=== PATIENT | male | born 1945 | race Caucasian/White ===

== ENCOUNTER → 2020-10-11 03:21 | Outpatient (CLI) | payer OTHER, SELFPAY ==
[2020-10-11 18:11] LABS: SARS-CoV-2 RNA PCR Negative
== END ==
PROVIDERS: PCP Internal Medicine; Visit Provider Specialist
DX: Z01.812 Encounter for preprocedural laboratory examination (principal); Z20.822 Contact with and (suspected) exposure to COVID-19
CPT/HCPCS: C9803; U0003; U0005

== ENCOUNTER 2020-10-14 01:32 | Day surgery (SDC) | payer OTHER, SELFPAY ==
[2020-10-14] VITALS (12 sets, daily range): BP systolic 101–157; BP diastolic 61–84; PULSE 35–102; RESP 12–16; TEMP 36.1–36.6; O2SAT 97–100; BMI 27.4
--- NOTE | 2020-10-14 07:10 | SUR.PREOP ---
ARRIVES AMBULATORY TO [facility] FOR SCHEDULED LHC W/ DR. CAVAZOS. DENIES CP OR SOB THIS AM. STEADY GAIT. A&OX4. ORIENTED TO ROOM, PLAN OF CARE, PROCEDURE. QUESTIONS ANSWERED. IV STARTED, LABS SENT, VS OBTAINED, SKIN PREP COMPLETED, CONSENT SIGNED, PULSES MARKED. WILL CONTINUE TO MONITOR.
[2020-10-14 07:30] LABS: Basophils Percent Auto 0.3 % (0.2-1.2); Eosinophils Absolute Auto 0.2 K/mm3 (0-0.3); Eosinophils Percent Auto 2.3 % (0-4.4); Hematocrit 47.9 % (42.0-52.0); Hemoglobin 15.9 g/dL (14.0-18.0); Immature Granulocyte Absolute 0.02 K/mm3 (0.00-0.031); Immature Granulocyte Percent A 0.2 % (0-0.5); Lymphocytes Absolute Auto 3.11 K/mm3 (0.9-3.2); Lymphocytes Percent Auto 34.4 % (18.3-44.2); Mean Corpuscular HGB Conc 33.2 g/dl (32-36); Mean Corpuscular Hemoglobin 27.1 pg (26-34); Mean Corpuscular Volume 81.6 fl (80-100); Mean Platelet Volume 9.9 fl (7.4-10.4); Monocytes Absolute Auto 1.1 K/mm3 (0.1-0.6); Monocytes Percent Auto 12.5 % (2.6-8.5); Neutrophils Absolute Auto 4.5 K/mm3 (1.3-6.7); Neutrophils Percent Auto 50.3 % (45.5-73.1); Platelet Count Result 246 k/mm3 (150-375); Red Blood Count 5.87 M/mm3 (4.6-6.20); Red Cell Distribution Width 14.2 % (11.5-14.5)
[2020-10-14 07:41] LABS: Anion Gap 10 mmol/L (8-16); Blood Urea Nitrogen 15 mg/dL (9-20); Calcium 9.7 mg/dL (8.4-10.2); Carbon Dioxide 26 mmol/L (22-30); Chloride 108 mmol/L (98-107); Estimated Glomerular Filt Rate > 60; Glucose 120 mg/dL (75-110); Potassium 3.5 mmol/L (3.4-5.0); Sodium 144 mmol/L (137-145)
[2020-10-14 07:46] LABS: Prothrombin Time 13.3 Seconds (11.1-14.7)
--- NOTE | 2020-10-14 08:05 | WPDMODSED ---
Moderate Sedation Note-Pt Data Patient Data Diagnosis: Coronary artery disease with previous surgical revascularization Exertional dyspnea Obstructive sleep apnea on CPAP Mildly abnormal nuclear stress test Present Complaint: This is a 75-year-old patient with coronary disease who underwent bypass grafting in 2005. 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 He is not experiencing anginal-type chest pain Procedure to be performed/Plan: Coronary angiography Left ventriculography Internal mammary graft angiography Vein graft angiography Allergies Allergy/AdvReac Type Severity Reaction Status Date / Time No Known Allergies Allergy Verified 10/14/20 07:50 Home Medications Medication Instructions Recorded Confirmed Type cholecalciferol (vitamin D3) 50 2,000 unit PO DAILY 08/15/19 10/14/20 History mcg (2,000 unit) tablet rivaroxaban 10 mg tablet 20 mg PO DAILY 08/15/19 10/14/20 History hydrochlorothiazide 25 mg tablet 25 mg PO 3XW #36 tablet 10/03/19 10/14/20 Rx amlodipine 5 mg-benazepril 10 mg 1 cap PO BID #180 cap 01/10/20 10/14/20 Rx capsule atorvastatin 40 mg tablet 40 mg PO DAILY #90 tablet 04/04/20 10/14/20 Rx allopurinol 300 mg tablet 300 mg PO DAILY #90 tablet 06/07/20 10/14/20 Rx Current Medications: Active Medications Sodium Chloride (Normal Saline Iv) 500 mls @ 100 mls/hr IV CONT .Q5H WALLY Sedation/Anesthesia: No previous sedation/anesthesia problems (including family history). [facility] Past Medical History Medical History (Updated 08/15/19 @ 13:06 by Benito Kang MD) Chronic fatigue Surgical History Surgical History (Updated 08/15/19 @ 11:27 by Benito Kang MD) Other specified postprocedural states Status post transurethral resection of prostate Family History Family History Father Malignant neoplasm of prostate Sibling Family history of pancreatic disease Mother Family history of Alzheimer's disease Other Family history of cardiovascular disease Social History Social History Smoking status: Never smoker Second hand tobacco smoke exposure: No Alcohol intake: current Mod Sed Physical Exam Physical Exam Pre Procedural Exam: Normal: Appearance, Neck, Throat, Airway, Lungs, Heart Size, Heart Rate, Heart Rhythm, Neuro Exam and Extremities Hours since solid foods: 12 Hours since liquid intake: 12 Internal Medicine - PN: Obj Da Vital Signs Vital Signs: Vital Signs - 24 hr 10/14/20 07:25 Temperature 36.6 C Pulse Rate 102 H Respiratory Rate 16 Blood Pressure 157/83 H Pulse Oximetry 100 Meds/Results Medications: Active Medications Generic Name Dose Route Start Last Admin Trade Name Hawa PRN Reason Stop Dose Admin Sodium Chloride 500 mls @ 100 mls/hr 10/14/20 07:10 Normal Saline Iv IV CONT .Q5H WALLY Labs CBC & Chem 7: 10/14/20 07:22 10/14/20 07:22 Labs: Laboratory Results - last 24 hr 10/14/20 10/14/20 10/14/20 07:22 07:22 07:22 WBC 9.0 RBC 5.87 Hgb 15.9 Hct 47.9 MCV 81.6 MCH 27.1 MCHC 33.2 RDW 14.2 Plt Count 246 MPV 9.9 Immature Gran % (Auto) 0.2 Neut % (Auto) 50.3 Lymph % (Auto) 34.4 Gates % (Auto) 12.5 H Eos % (Auto) 2.3 Baso % (Auto) 0.3 Lymph # (Auto) 3.11 Gates # (Auto) 1.1 H Eos # (Auto) 0.2 Baso # (Auto) 0.0 Abs Immat Gran (auto) 0.02 Absolute Neuts (auto) 4.5 Absolute Nucleated RBC 0.0 Nucleated RBC % 0.0 PT 13.3 INR 1.0 Sodium 144 Potassium 3.5 Chloride 108 H Carbon Dioxide 26 Anion Gap 10 BUN 15 Creatinine 0.80 Estim Creat Clear Calc Not Reportable Estimated GFR > 60 Glucose 120 H Calcium 9.7 ASA Class
--- NOTE | 2020-10-14 08:09 | SUR.PREOP ---
DR. CAVAZOS TO BEDSIDE TO SEE PT.
--- NOTE | 2020-10-14 09:09 | WPDCARDPROC ---
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 His employment with [employer] requires nuclear stress testing which was done recently as an outpatient which demonstrated an apical lateral perfusion abnormality. Because of this follow-up angiography has been recommended. In 2005 he received a VELIZ graft to the LAD and a vein graft to the PDA. Previous to this he had undergone attempts at percutaneous stenting of the LAD. Procedure Procedure performed:: Left heart catheterization with left ventriculography, coronary angiography, vein graft angiography and internal mammary graft angiography. DC countershock of ventricular fibrillation Sedation/Medication given:: fentanyl 50 mg Versed 2 mg case start time 8:35 a.m. case end time 9:05 a.m. sedation provided by Daisy Gomez RN, trained observer Access site:: right femoral artery Estimated blood loss:: 20-30 cc Procedure note:: patient was brought to the cardiac catheterization lab in the postabsorptive state the right femoral triangle was prepared and draped in usual fashion. Anesthesia was provided with 1% lidocaine infiltrated locally. Using the modified Seldinger technique the common femoral artery was punctured and 5 Lithuanian vascular sheath was placed. After this I used a 5 Lithuanian angled pigtail catheter to document left-sided hemodynamics and to injected LV g in the our AO projection. After this a 5 Lithuanian FL4 catheter was used to engage inject the left coronary artery. Five Lithuanian JR4 catheter was used to engage inject the [place] right coronary artery as well as the saphenous vein graft to the PDA. After this 2nd injection of the saphenous vein graft the patient developed ventricular fibrillation which was terminated with 1 countershock at 200 joules restoring sinus rhythm. Following this I used the 5 Lithuanian CHEN catheter to engage inject the left mammary to the LAD. The procedure was then terminated angiogram was done of the femoral artery through the sheath after which an Angio-Seal device was deployed the puncture site with a good hemostatic result. Procedure was well tolerated the complication of ventricular fibrillation as a result of angiography of the saphenous vein graft to the PDA was as described above. Findings:: Hemodynamics: Central aortic pressure 112/55 left ventricle 110/0 end-diastolic 5. Left ventriculogram: The LV is normal in size all segments contract nicely in all segments the global ejection fraction is visually estimated at 65%. The left main coronary artery is nicely patent the left anterior descending is medium in caliber gives rise to a proximal septal branch and a small proximal diagonal after which the LAD itself is 100% occluded appears to be a chronic total occlusion in the region of previous stent material the circumflex is a large caliber artery giving rise to the marginal branches and a moderate-sized posterior branch. The circumflex system is free of significant lesions. Right coronary artery is small to medium in caliber and appears to have been codominant. The right coronary artery is 100% occluded in the 2nd portion after the largest acute marginal RV branch is seen the RV branch is free of disease. Saphenous vein graft to the PDA is a medium size caliber segment of saphenous vein it is free of degenerative changes it fills the posterior descending artery nicely is anastomosis is nicely patent. The left internal mammary artery is moderate caliber and is anastomosed to the mid to distal LAD distal to the stent material. It is injected non selectively it is nicely patent and free of disease a provides ALLYSSA 3 flow into the
--- NOTE | 2020-10-14 09:15 | SUR.PHASEII ---
BEGIN PHASE II RECOVERY. RETURNS TO [facility] S/P [facility] W/ DR. CAVAZOS. AWAKE AND ALERT X 4. DENIES CP OR SOB. ANGIOSEAL CLOSURE TO R. GROIN PUNCTURE SITE. GUAZE AND TEGADERM DRESSING C/D/I TO SITE. AREA SOFT, NONTENDER; NO BLEEDING OR HEMATOMA NOTED. R. PEDAL AND POST TIB PULSES PALP EASILY. MONITOR AFIB. BP STABLE. REVIEWED BEDREST ACTIVITY RESTRICTIONS W/ PT. BEDREST X 2 HOURS. WILL CONTINUE TO MONITOR.
--- NOTE | 2020-10-14 10:20 | SUR.PHASEII ---
HOB UP 30 DEGREES FOR MEAL. NO NEW CHANGES IN R. GROIN SITE. NOTED APNEA WHEN SLEEPING AND HR DIP INTO 30'S AT TIMES. MONITOR IS AFIB. OTHERWISE BP STABLE. WILL CONTINUE TO MONITOR.
--- NOTE | 2020-10-14 10:54 | SUR.PHASEII ---
NOTIFIED DR. 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 NO NEW ORDERS RECEIVED.
--- NOTE | 2020-10-14 11:30 | SUR.PHASEII ---
BEDREST X 2 HOURS COMPLETE. UP TO BATHROOM TO VOID, THEN RETURNED TO CHAIR. TOLERATED WELL. VOIDED WITHOUT DIFFICULTY. R. GROIN SITE REMAINS WITHOUT CHANGE. WILL CONTINUE TO MONITOR.
--- NOTE | 2020-10-14 12:50 | SUR.PHASEII ---
CONDITION UPDATE CALLED TO DR. CAVAZOS. NO CHANGE IN CONDITION NOTED. PT. HAS QUESTIONS FOR DR. CAVAZOS. AWAIT ARRIVAL OF DR. CAVAZOS.
--- NOTE | 2020-10-14 14:55 | SUR.PHASEII ---
DR. CAVAZOS HERE TO SEE PT. AGAIN UPDATED ON SLOW AFIB BEAT DOWN TO 30'S AT TIMES AND FREQUENT PVC'S. OTHERWISE, PT. WITHOUT C/O AND VSS. R. GROIN SITE REMAINS SOFT, NONTENDER. NO BLEEDING OR HEMATOMA NOTED. DRESSING C/D/I. ANGIOSEAL CLOSURE DEVICE IN USE. DR. CAVAZOS TO BEDSIDE TO TALK WITH PT.
--- NOTE | 2020-10-14 15:50 | SUR.PHASEII ---
REVIEWED DISCHARGE INSTRUCTIONS AND FOLLOW UP CARE W/ PT. PT. AWARE TO RESUME TAKING XARELTO ON 10/18/20. QUESTIONS ANSWERED. VOICED UNDERSTANDING OF ALL. COPY OF DISCHARGE INSTRUCTIONS GIVEN.
--- NOTE | 2020-10-14 15:52 | SUR.PHASEII ---
DISCHARGED HOME, OUT VIA WC W/ ALL PERSONAL BELONGINGS AND DISCHARGE PACKET TO DAUGHTER'S WAITING CAR. VOICES NO C/O. NO DISTRESS NOTED.
== END 2020-10-14 15:52 | disposition home or self-care (01) ==
PROVIDERS: PCP Internal Medicine; Visit Provider Specialist
PROC: 4A023N7 Measurement of Cardiac Sampling and Pressure, Left Heart, Percutaneous Approach (ICD-10-PCS; CPT 93459; principal; 2020-10-14 08:30)
DX: I25.10 Atherosclerotic heart disease of native coronary artery without angina pectoris (principal); I49.01 Ventricular fibrillation; R94.39 Abnormal result of other cardiovascular function study; G47.33 Obstructive sleep apnea (adult) (pediatric); Z95.1 Presence of aortocoronary bypass graft; Z95.5 Presence of coronary angioplasty implant and graft; Z79.01 Long term (current) use of 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s
CPT/HCPCS: 36415; 80048; 85025; 85610; 93459; C1760; C1769; C1887; C1894; C9803; G0269; J1644; J2250; J3010; J7040; U0003; U0005

== ENCOUNTER → 2021-07-09 10:32 | Outpatient (CLI) | payer OTHER, SELFPAY ==
--- NOTE | ~2021-07-09 | XR_ITS ---
EXAMINATION: XR shoulder RT min 2V INDICATION: Right shoulder pain TECHNIQUE: Four views of the right shoulder are submitted. COMPARISON: None FINDINGS: Normal alignment. No fracture. There is severe glenohumeral joint osteoarthritis and modera te acromioclavicular joint osteoarthritis. Severe cervical spondylosis is noted. There are changes of cardiac surgery. Soft tissues are unremarkable. IMPRESSION: 1. Polyarticular osteoarthritis. Reviewed, dictated and finalized at location B.
== END ==
PROVIDERS: PCP Internal Medicine; Visit Provider Internal Medicine
DX: M25.511 Pain in right shoulder (principal); M19.011 Primary osteoarthritis, right shoulder
CPT/HCPCS: 73030

== ENCOUNTER 2023-02-15 10:50 | Outpatient (CLI) | payer OTHER, SELFPAY ==
[2023-02-15 14:44] LABS: Alanine Aminotransferase 24 U/L (6-50); Albumin Level 4.5 g/dL (3.5-5.1); Alkaline Phosphatase 94 U/L (38-126); Anion Gap 6 mmol/L (8-16); Aspartate Amino Transferase 33 U/L (17-59); Blood Urea Nitrogen 24 mg/dL (9-20); Calcium 9.4 mg/dL (8.4-10.2); Carbon Dioxide 33 mmol/L (22-30); Chloride 102 mmol/L (98-107); Cholesterol 152 mg/dL (0-200); Estimated Glomerular Filt Rate > 60; Glucose 110 mg/dL (65-110); HDL Direct 56 mg/dL; Potassium 3.6 mmol/L (3.4-5.0); Sodium 141 mmol/L (137-145); Triglycerides 69 mg/dL (<150); Uric Acid 4.8 mg/dL (3.5-8.5)
[2023-02-15 14:58] LABS: LDL Cholesterol Direct 74 mg/dL
[2023-02-15 16:11] LABS: Hemoglobin A1C 6.1 % (<5.7)
== END 2023-02-15 10:51 | disposition home or self-care (01) ==
LOC: ANHGOSHLAB 10:51
PROVIDERS: PCP Family Medicine; Visit Provider Family Medicine
DX: I10 Essential (primary) hypertension (principal); E78.5 Hyperlipidemia, unspecified; M10.9 Gout, unspecified; R73.03 Prediabetes
CPT/HCPCS: 36415; 80053; 80061; 83036; 84550

== ENCOUNTER 2024-02-08 11:52 | Outpatient (CLI) | payer OTHER, SELFPAY ==
[2024-02-08 13:34] LABS: Alanine Aminotransferase 34 U/L (6-50); Albumin Level 4.5 g/dL (3.5-5.1); Alkaline Phosphatase 86 U/L (38-126); Anion Gap 7 mmol/L (4-12); Aspartate Amino Transferase 73 U/L (17-59); Blood Urea Nitrogen 25 mg/dL (9-20); Calcium 9.4 mg/dL (8.4-10.2); Carbon Dioxide 26 mmol/L (22-30); Chloride 108 mmol/L (98-107); Cholesterol 164 mg/dL (0-200); Estimated Glomerular Filt Rate > 60; Glucose 122 mg/dL (65-110); HDL Direct 59 mg/dL; Sodium 141 mmol/L (137-145); Triglycerides 76 mg/dL (<150); Uric Acid 5.4 mg/dL (3.5-8.5)
[2024-02-08 13:44] LABS: LDL Cholesterol Direct 91 mg/dL
[2024-02-08 13:47] LABS: Hemoglobin A1C 5.9 % (<5.7)
== END 2024-02-08 11:53 | disposition home or self-care (01) ==
LOC: ANHGOSHLAB 11:53
PROVIDERS: PCP Family Medicine; Visit Provider Family Medicine
DX: E78.5 Hyperlipidemia, unspecified (principal); R73.03 Prediabetes; M10.9 Gout, unspecified; Z13.228 Encounter for screening for other metabolic disorders
CPT/HCPCS: 36415; 80053; 80061; 83036; 84550

== ENCOUNTER 2024-10-10 09:49 | Outpatient (CLI) | payer OTHER, SELFPAY ==
--- OUTSIDE RECORDS SUMMARY | 2024-10-10 10:23 | XMS_ITS | Clinical Summary ---
Author Organization [facility] Address [address] [place] [address]. [place], [place] [id number] [place] [address] Care Team Providers Care Composite Science Teacher Name Role Phone Unavailable Primary Care Provider Unavailabl e Social History Tobacco Use Types Packs/Day Years Used Date Smoking Tobacco: Never Assessed Sex and Gender Information Value Date Recorded Sex Assigned at Not on file Legal Sex Male 7:55 PM CDT Gender Identity Not on file Sexual Orientation Not on file Plan of Treatment Health Maintenance Due Date Last Done Comments Hepatitis C 1964 DTaP, Tdap and Td Vaccines ( 1 - Tdap) 1965 Zoster Vaccines (1 of 2) 1996 Pneumococcal Vaccine: 65+ Ye ars (1 of 1 - PCV) 2011 RSV Immunization or 60+ Years (1 - 1-dose 75+ series) 2021 COVID-19 Vaccine ( - 2023-2 5 season) 2024 Influenza Adult (#1) 2024 Meningococcal B Vaccine Aged Out No l onger eligible based on patient's age to complete this topic Meningococcal Vaccine Aged Out No claire goldy eligible based on patient's age to complete this topic RSV Immunizations Under 20 Months Aged Out No longer eligible based on patient's age to complete this topic
--- OUTSIDE RECORDS SUMMARY | 2024-10-10 10:23 | XMS_ITS | Encounter Summary ---
Author Organization [facility] Address [address] [place] [address] Care Team Providers Care Yoga Coordinator Name Role Phone Benito Kang MD Primary Care Provider [phone] Benito Kang MD Primary Care Provider [phone] Timothy Jacques DO Primary Care Provider [phone] Encounter Details Date Type Department Care Team (Late st Contact Info) Description 09/11/2016 Orders Only [facility] ProviderAzul MD [address] [place] [address] Social History Tobacco Use Types Packs/Day Years Used Date Smoking Tobacco: Never Alcohol Use Standard Drinks/Week Comments Yes 0 (1 standard drink = 0.6 oz pur e alcohol) Sex and Gender Information Value Date Recorded Sex Assigned at Not on file 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 us Historical Provider [facility] PROCE DURES Final Result * CARDIOLOGY REPORT (09/11/2016) Anatomical Region Laterality Modality Other Narrative 09/11/2016 Ordered by an unspecified provider. us Historical Provider [facility] PROCE DURJAY Final Result documented in this encounter Visit Diagnoses Not on filedocumented in this encounter Care Teams Yoga Coordinator Relationship Specialty Start Date End Date Benito Kang MD [address] [place] [address] PCP - General 12/04/16 05/24/22 Benito Kang MD [address] [place] [address] PCP - General 03/01/13 12/03/16 Timothy Jacques DO [address] [place] [address] PCP - General Family Medicine 05/25/22 documented as of this encounter
--- OUTSIDE RECORDS SUMMARY | 2024-10-10 10:23 | XMS_ITS | Encounter Summary ---
Author Organization [facility] Address [address] [place] [address] Care Team Providers Care Lidar Analyst Name Role Phone Benito Kang MD Primary Care Provider [phone] Benito Kang MD Primary Care Provider [phone] Timothy Jacques DO Primary Care Provider [phone] Encounter Details Date Type Department Care Team (Late st Contact Info) Description 09/16/2016 Orders Only [facility] ProviderAzul MD [address] [place] [address] Social History Tobacco Use Types Packs/Day Years Used Date Smoking Tobacco: Never Alcohol Use Standard Drinks/Week Comments Yes 0 (1 standard drink = 0.6 oz pur e alcohol) Sex and Gender Information Value Date Recorded Sex Assigned at Not on file 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 Historical Provider [facility] ROSA M YU Final Result documented in this encounter Visit Diagnoses Not on filedocumented in this encounter Care Teams Lidar Analyst Relationship Specialty Start Date End Date Benito Kang MD [address] [place] [address] PCP - General 12/04/16 05/24/22 Benito Kang MD [address] [place] [address] PCP - General 03/01/13 12/03/16 Timothy Jacques DO [address] [place] [address] PCP - General Family Medicine 05/25/22 documented as of this encounter
--- OUTSIDE RECORDS SUMMARY | 2024-10-10 10:23 | XMS_ITS | Referral Summary ---
Author Organization [facility] [address] Address [address] [place] [address] Care Team Providers Care Labor Arbitrator Name Role Phone Timothy Jacques Primary Care Provider [phone] Allergies No known active allergies Medications hydroCHLOROthia zide (HYDRODIURIL) 25 mg tablet take 1 Tablet (25MG) by oral route 3 times every week 0 2 Active nitroglycerin (NITROSTAT) 0.[address] 1 tablet (0.4MG) by sublingual route at the 1st sign of attack; may repeat every 5 min until relief; if pain persists after 3 tablets in 15 min, prompt medical attention is recommended 0 2 Active amlodipine-rafa zepril (LOTREL) 10-20 mg per capsule take 2 Capsule by oral route every day 0 2 Active allopurinol (ZYLOPRIM) 300 mg tablet take 1 tablet by oral route every day 0 0 5 Active atorvastatin (LIPITOR) 40 mg tablet Take 1 tablet (40 mg total) by mouth daily Patient needs to be seen prior to any more refills. 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 Atherosclerosis of [place] ronary artery without angina pectoris 03/14/2018 SHIRA (obstructive sleep apnea) 03/24/2017 Diastolic dysfunction 11/10/2016 Overview (01/29/2017): Diastolic dysfunction Persistent atrial fibrillation 09/11/2016 Overview (12/11/2016): Atrial fibrillation, unspecified type Fatigue 09/11/2016 Overview (12/11/2016): Fatigue, unspecified type 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 0 09/11/2016 Overview (12/11/2016): Chronic anticoagulation Hypertension 11/29/2014 Overview (12/11/2016): Hypertension Hyperlipidemia 11/29/2014 Overview (12/11/2016): Hyperlipidemia Atherosclerosis of coronary artery 11/29/2014 Overview (12/11/2016): CAD (coronary atherosclerotic disease) Social History Tobacco Use Types Packs/Day Years Used Date Smoking Tobacco: Never Smokeless Tobacco: Never Alcohol Use Standard Drinks/Week Comments Yes 0 (1 standard drink = 0.6 oz pur e alcohol) Sex and Gender Information Value Date Recorded Sex Assigned at Not on file 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 Gender Identity Not on file Sexual Orientation Not on file Last Filed Vital Signs Vital Sign Reading Time Taken Comments Blood Pressure 132/58 05/30/2024 9:28 AM CDT Pulse 67 05/30/2024 9:08 AM CDT Temperature - - Respiratory Rate 14 03/24/2017 11:08 AM CDT Oxygen Saturation 97% 05/30/2024 9:08 AM CDT Inhaled Oxygen Concentration - - Weight 79.4 kg (175 lb) 05/30/2024 9:08 AM CDT Height 175.3 cm (5' 9 ) 05/30/2024 9:08 AM CDT Body Mass Index 25.84 05/30/2024 9:08 AM CDT Plan of Treatment Not on file Insurance [facility] Member Subscriber Plan / Payer ( fective 2011-Present) Name:George Steiner Relation to Subscriber:Self Name:George Steiner Payer ID:[id number] ([facility]) Type:MEDICARE RISK OTHER Address: [address] [facility] Member Subscriber Plan / Payer ( fective 2011-Present) Name:[place] George Relation to Subscriber:Self Name:George Steiner Payer ID:[id number] ([facility]) Type:MEDICARE RISK OTHER Address: [address] [place] [id number] Care Teams Labor Arbitrator Relationship Specialty Start Date End Date Timothy Jacques DO PCP - General Family Medicine 05/25/22
--- OUTSIDE RECORDS SUMMARY | 2024-10-10 10:23 | XMS_ITS | Encounter Summary ---
Author Organization [facility] Address [address] [place] [address] Care Team Providers Care Bindery Helper Name Role Phone Benito Kang MD Primary Care Provider [phone] Benito Kang MD Primary Care Provider [phone] Timothy Jacques DO Primary Care Provider [phone] Encounter Details Date Type Department Care Team (Late st Contact Info) Description 11/10/2016 Orders Only [facility] ProviderAzul MD [address] [place] [address] Social History Tobacco Use Types Packs/Day Years Used Date Smoking Tobacco: Never Alcohol Use Standard Drinks/Week Comments Yes 0 (1 standard drink = 0.6 oz pur e alcohol) Sex and Gender Information Value Date Recorded Sex Assigned at Not on file 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 Historical Provider [facility] ROSAM YU Final Result documented in this encounter Visit Diagnoses Not on filedocumented in this encounter Care Teams Bindery Helper Relationship Specialty Start Date End Date Benito Kang MD [address] [place] [address] PCP - General 12/04/16 05/24/22 Benito Kang MD [address] [place] [address] PCP - General 03/01/13 12/03/16 Timothy Jacques DO [address] [place] [address] PCP - General Family Medicine 05/25/22 documented as of this encounter
--- OUTSIDE RECORDS SUMMARY | 2024-10-10 10:23 | XMS_ITS | Clinical Summary ---
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 Atherosclerosis of [place] co ronary artery without angina pectoris 03/14/2018 SHIRA (obstructive sleep apnea) 03/24/2017 Diastolic dysfunction 11/10/2016 Overview (01/29/2017): Diastolic dysfunction Persistent atrial fibrillation 09/11/2016 Overview (12/11/2016): Atrial fibrillation, unspecified type Fatigue 09/11/2016 Overview (12/11/2016): 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, 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 0 09/11/2016 Overview (12/11/2016): Chronic anticoagulation Hypertension 11/29/2014 Overview (12/11/2016): Hypertension Hyperlipidemia 11/29/2014 Overview (12/11/2016): Hyperlipidemia Atherosclerosis of coronary artery 11/29/2014 Overview (12/11/2016): CAD (coronary atherosclerotic disease) Surgical History Surgery Date Site/Laterality Comments CARDIOVERSION Medical History Medical History Date Comments Atrial fibrillation (CMS/HCC) (HCC) Coronary artery disease Hypertension Sleep apnea Family History Medical History Relation Name Comments Pancreatitis Brother 2 Pancreatitis; C ause of : Pancreatitis Coronary artery disease Father Shanice nary artery disease; Cause of : Coronary artery disease Alzheimer's disease Mother Alzheime r's Disease; Cause of : Alzheimer's Disease Relation Name Status Comments Brother 1 (Age 49) Brother 2 Father (Age 85) Mother (Age 86) Social History Tobacco Use Types Packs/Day Years Used Date Smoking Tobacco: Never Smokeless Tobacco: Never Alcohol Use Standard Drinks/Week Comments Yes 0 (1 standard drink = 0.6 oz pur e alcohol) Sex and Gender Information Value Date Recorded Sex Assigned at Not on file 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 Gender Identity Not on file Sexual Orientation Not on file Obstetrics History Last Filed Vital Signs Vital Sign Reading [...] 05/30/2024 9:08 AM CDT Plan of Treatment Health Maintenance Due Date Last Done Comments Depression Screening 1945 Fall Risk Assessment 1945 Hepatitis C Screening 1945 DTaP/Tdap/Td Vaccine (1 - Tdap) 1957 Hepatitis B Screening 1964 Zoster Vaccine (1 of 2) 1996 Well Visit 65+ 2011 Influenza Vaccine (#1) 2024 0, 05/24/2020, 07/05/2018, Additional history exists Pneumococcal vaccine 65+ Completed 020, 07/05/2018, 11/04/2015 Insurance [facility] Care Teams Recruiting And Selection Consultant Relationship Specialty Start Date End Date Timothy Jacques DO PCP - General Family Medicine 05/25/22
[2024-10-10 13:36] LABS: Hemoglobin A1C 6.2 % (<5.7)
[2024-10-10 13:54] LABS: Vitamin D 25 Hydroxy 28.3 ng/mL
[2024-10-10 17:15] LABS: Alanine Aminotransferase 26 U/L (6-50); Albumin Level 4.5 g/dL (3.5-5.1); Alkaline Phosphatase 101 U/L (38-126); Anion Gap 11 mmol/L (4-12); Aspartate Amino Transferase 40 U/L (17-59); Blood Urea Nitrogen 24 mg/dL (9-20); Calcium 9.3 mg/dL (8.4-10.2); Carbon Dioxide 26 mmol/L (22-30); Chloride 103 mmol/L (98-107); Cholesterol 155 mg/dL (0-200); Estimated Glomerular Filt Rate > 60; Glucose 109 mg/dL (65-110); HDL Direct 70 mg/dL; Potassium 3.9 mmol/L (3.4-5.0); Sodium 140 mmol/L (137-145); Triglycerides 49 mg/dL (<150)
[2024-10-10 17:27] LABS: LDL Cholesterol Direct 68 mg/dL
== END 2024-10-10 09:50 | disposition home or self-care (01) ==
LOC: ANHGOSHLAB 09:50
PROVIDERS: PCP Emergency Medicine; Visit Provider Emergency Medicine
DX: E55.9 Vitamin D deficiency, unspecified (principal); E78.5 Hyperlipidemia, unspecified; E11.9 Type 2 diabetes mellitus without complications
CPT/HCPCS: 36415; 80053; 80061; 82306; 83036

== ENCOUNTER 2024-12-08 01:03 | Day surgery (SDC) | payer OTHER, SELFPAY ==
[2024-12-04 12:24] VITALS: BMI 25.5
--- NOTE | 2024-12-05 08:27 | PC.NURSE ---
Spoke with patient regarding medication Xarelto. Patient verbalizes understanding that the last dose is to be taken on 12/04/24 and the Endoscopist will instruct them when to restart after the procedure. Patient states he had already stopped taking med a couple days ago, not advised by us, but on his own will.
--- NOTE | 2024-12-07 13:15 | P.PNAN_ITS ---
Anes - Initial Pre Proc Eval Procedure: Operation Date: 12/08/24 08:00 Proposed Procedures p Screening Colonoscopy - Virgil Mccormack MD Date/Time: 12/07/24 13:15 Surgeon: Virgil Mccormack MD Pre Op Diagnosis: Screening Patient Data Age: 79 Gender: M Height: 1.75 m Weight: 78.5 kg Allergies Allergy/AdvReac Type Severity Reaction Status Date / Time No Known Allergies Allergy Verified 12/08/24 07:00 Home Medications ?Medication ?Instructions ?Recorded ?Confirmed ?Type atorvastatin 40 mg tablet 40 mg PO DAILY #90 tabs 04/04/20 12/08/24 Rx hydrochlorothiazide 25 mg tablet See Rx Instructions .Route 12/30/23 12/08/24 Rx .COMPLEX #36 tabs allopurinol 300 mg tablet 300 mg PO DAILY #90 tabs 05/10/24 12/08/24 Rx amlodipine 5 mg-benazepril 10 mg 1 cap PO BID #180 caps 09/25/24 12/08/24 Rx capsule rivaroxaban 20 mg tablet (Xarelto) 20 mg PO DAILY 09/25/24 12/08/24 History Patient hx anesthesia problems: none Family hx anesthesia problems: none Results Review: All pre-operative results and documents have been reviewed as part of the pre- operative evaluation. [facility] Past Medical History Medical History (Updated 12/07/24 @ 13:16 by Stanley Mclaughlin DO) Alcohol consumption binge drinking Essential (primary) hypertension Obstructive sleep apnea Prediabetes Atrial fibrillation, controlled Chronic fatigue Surgical History Surgical History (Updated 12/07/24 @ 13:16 by Stanley Mclaughlin DO) Status post aorto-coronary artery bypass graft Status post transurethral resection of prostate Other specified postprocedural states Family History Family History Father Malignant neoplasm of prostate Sibling Family history of pancreatic disease Mother Family history of Alzheimer's disease Other Family history of cardiovascular disease Social History Social History Smoking status: Never smoker Second hand tobacco smoke exposure: No Alcohol intake: former Alcohol use details: sober 15 months Substance use: never Substance use type: does not use Lack of Transportation: No Lack of Food: Never True Current Housing: I Have Housing Concerned About Future Housing: No Difficulty Paying Gas/Electric Bills: No Difficulty Paying for Meds: No Currently Unemployed: No Education: Master's Degree or Higher Difficulty w/ Childcare or Family Care: No Living arrangements: alone Occupation/Education: occupation Additional occupation/education comments: [employer] Gender identity (if verbalized by the patient): Male Sexual Orientation (if Verbalized by the Patient): Straight or Heterosexual Spiritual care concerns: No Anes - Eval Final PreProcedure Day of Procedure 12/07/24 13:15 Patient weight: overweight Heart: regular rate and rhythm Lungs: clear to auscultation Airway: Mallampati scale class II Neurological: alert and oriented Last oral intake: >/= 8 hours ASA classification: III Emergent: no Anesthetic plan: proceed Anesthesia type and monitoring: general GIVS and standard monitoring Results Review: All pre-operative results and documents have been reviewed as part of the pre- operative evaluation. Informed Consent: The patient's anesthetic plan and its attendant risks and benefits were discussed with the patient/family/POA. Questions were solicited and answers provided to the satisfaction of the patient/family/POA.
--- OUTSIDE RECORDS SUMMARY | 2024-12-08 01:05 | XMS_ITS | Encounter Summary ---
Author Organization [facility] Address [address] [place] [address] Care Team Providers Care Gastroenterology Teacher Name Role Phone Benito Kang MD Primary Care Provider [phone] Benito Kang MD Primary Care Provider [phone] Timothy Jacques DO Primary Care Provider [phone] Encounter Details Date Type Department Care Team (Late st Contact Info) Description 11/10/2016 [facility] Only [facility] ProviderAzul MD [address] [place] [address] Social History Tobacco Use Types Packs/Day Years Used Date Smoking Tobacco: Never Alcohol Use Standard Drinks/Week Comments Yes 0 (1 standard drink = 0.6 oz pur e alcohol) Sex and Gender Information Value Date Recorded Sex Assigned at Not on file 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
--- OUTSIDE RECORDS SUMMARY | 2024-12-08 01:05 | XMS_ITS | Clinical Summary ---
Author Organization [facility] [address] Address [address] [place] [address] Care Team Providers Care Residential Roofer Helper Name Role Phone Timothy Jacques Primary Care Provider [phone] Allergies No known active allergies Medications hydroCHLOROthi azide (HYDRODIURIL) 25 mg tablet take 1 Tablet (25MG) by oral route 3 times every week 0 01/27/20 12 Active nitroglycerin (NITROSTAT) 0.[address] 1 tablet (0.4MG) by sublingual route at the 1st sign of attack; may repeat every 5 min until relief; if pain persists after 3 tablets in 15 min, prompt medical attention is recommended 0 01/27/20 12 Active amlodipine-dimitri azepril (LOTREL) 10-20 mg per capsule take 2 Capsule by oral route every day 0 01/27/20 12 Active allopurinol (ZYLOPRIM) 300 mg tablet take 1 tablet by oral route every day 0 0 09/05/20 15 Active atorvastatin (LIPITOR) 40 mg tablet Take 1 tablet (40 mg total) by mouth daily Patient needs to be seen prior to any more refills. 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 Atherosclerosis of [place] co ronary artery without angina pectoris 03/14/2018 SHIRA (obstructive sleep apnea) 03/24/2017 Diastolic dysfunction 11/10/2016 Overview (01/29/2017): Diastolic dysfunction Persistent atrial fibrillation 09/11/2016 Overview (12/11/2016): Atrial fibrillation, unspecified type Fatigue 09/11/2016 Overview (12/11/2016): Fatigue, unspecified type 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 Cardiology [address] [place] [address] Nahun Newby MD 12/01/[address] 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
--- OUTSIDE RECORDS SUMMARY | 2024-12-08 01:05 | XMS_ITS | Encounter Summary ---
Author Organization [facility] Address [address] [place] [address] Care Team Providers Care Cabin Cleaning Supervisor Name Role Phone Benito Kang MD Primary Care Provider [phone] Benito Kang MD Primary Care Provider [phone] Timothy Jacques DO Primary Care Provider [phone] Encounter Details Date Type Department Care Team (Late st Contact Info) Description 09/16/2016 Orders Only [facility] ProviderAzul MD [address] [place] [address] Social History Tobacco Use Types Packs/Day Years Used Date Smoking Tobacco: Never Alcohol Use Standard Drinks/Week Comments Yes 0 (1 standard drink = 0.6 oz pur e alcohol) Sex and Gender Information Value Date Recorded Sex Assigned at Not on file 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
--- OUTSIDE RECORDS SUMMARY | 2024-12-08 01:05 | XMS_ITS | Encounter Summary ---
Author Organization [facility] Address [address] [place] [address] Care Team Providers Care Kindergarten Teacher Assistant Name Role Phone Benito Kang MD Primary Care Provider [phone] Benito Kang MD Primary Care Provider [phone] Timothy Jacques DO Primary Care Provider [phone] Encounter Details Date Type Department Care Team (Late st Contact Info) Description 09/11/2016 [facility] Only [facility] ProviderAzul MD [address] [place] [address] Social History Tobacco Use Types Packs/Day Years Used Date Smoking Tobacco: Never Alcohol Use Standard Drinks/Week Comments Yes 0 (1 standard drink = 0.6 oz pur e alcohol) Sex and Gender Information Value Date Recorded Sex Assigned at Not on file 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
--- OUTSIDE RECORDS SUMMARY | 2024-12-08 01:05 | XMS_ITS | Clinical Summary ---
Author Organization [facility] Address [address] [place] [address] Care Team Providers Care Metal Numerical Tool Programmer Name Role Phone Unavailable Primary Care Provider [...] Vaccine ( - 2023-2 5 season) 2024 Meningococcal B Vaccine Aged Out No l onger eligible based on patient's age to complete this topic Meningococcal Vaccine Aged Out No claire goldy eligible based on patient's age to complete this topic RSV Immunizations Under 20 Months Aged Out No longer eligible based on patient's age to complete this topic
--- OUTSIDE RECORDS SUMMARY | 2024-12-08 01:05 | XMS_ITS | Encounter Summary ---
Author Organization [facility] Healthcare Address [address] [place] [address] Care Team Providers Care Fish Drier Name Role Phone AlbinoTimothy valdez Primary Care Provider [phone] Encounter Details Date Type Department Care Team (Late st Contact Info) Description 12/01/2024 Telephone [facility] Cardiology [address] [place] [address] Nahun Newby MD [address] [place] [address] Social History Tobacco Use Types Packs/Day Years Used Date Smoking Tobacco: Never Smokeless Tobacco: Never Alcohol Use Standard Drinks/Week Comments Yes 0 (1 standard drink = 0.6 oz pur e alcohol) Sex and Gender Information Value Date Recorded Sex Assigned at Not on file 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 Advised that MAF will be back in [place] office on Wednesday and will address clearances at that time * Telephone Encounter - Val Haynes - 12/01/2024 2:53 PM CDT Nancy from [facility] states she faxed a cardiac clearance request on 11/23 and again on to [phone]. Pt is scheduled on 12/08 and last dose is on 12/04. Requesting call back with an update. Contact: documented in this encounter Plan of Treatment Not on file documented as of this encounter Visit Diagnoses Not on filedocumented in this encounter Care Teams Fish Drier Relationship Specialty Start Date End Date Timothy Jacques DO PCP - General Family Medicine 05/25/22 documented as of this encounter
--- OUTSIDE RECORDS SUMMARY | 2024-12-08 01:05 | XMS_ITS | Referral Summary ---
Author Organization [facility] [address] Address [address] [place] [address] Care Team Providers Care Fisher Diver Net Name Role Phone Timothy Jacques Primary Care Provider [phone] Encounters Date Type Department Care Team Description 12/04/2024 Telephone [facility] Cardiology [address] [place] [address] Nahun Newby MD 12/01/2024 Telephone [facility] Cardiology [address] [place] [address] Nahun Newby MD from Last 3 Months Allergies No known active allergies Medications hydroCHLOROthi [...] BY MOUTH DAILY WITH DINNER 90 tablet 05/15/20 24 025 Discontinued Active Problems Problem Noted Date Diagnosed Date 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 Atherosclerosis of [place] co ronary artery without angina pectoris 03/14/2018 SHIRA (obstructive sleep apnea) 03/24/2017 Diastolic dysfunction 11/10/2016 Overview (01/29/2017): Diastolic dysfunction Persistent atrial fibrillation 09/11/2016 Overview (12/11/2016): Atrial fibrillation, unspecified type Fatigue 09/11/2016 Overview (12/11/2016): Fatigue, unspecified type nursing home current use of 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 therapy 0 09/11/2016 [...] on file 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
[2024-12-08 07:01] VITALS: BP 161/102; PULSE 87; RESP 18; TEMP 36.1; O2SAT 98
[2024-12-08] MEDS: LACTATED RINGERS 1,000 ML 150 ML IV CONT (07:08)
--- NOTE | 2024-12-08 07:50 | PM.IMHP ---
H&P: HPI History of Present Illness Date/Time: 12/08/24 07:50 Chief Complaint: Screening colonoscopy Narrative: This is the patient's first colonoscopy after 10 years.. There are no GI symptoms and there is no family history of colorectal cancer. Review of Systems Review of Systems: All systems reviewed & are unremarkable except as noted in HPI and below PMFSH Past Medical History Medical History (Updated 12/08/24 @ 07:52 by Virgil Mccormack MD) Alcohol consumption binge drinking Essential (primary) hypertension Obstructive sleep apnea Prediabetes Atrial fibrillation, controlled Chronic fatigue Surgical History Surgical History (Updated 12/07/24 @ 13:16 by Stanley Mclaughlin DO) Status post aorto-coronary artery bypass graft Status post transurethral resection of prostate Other specified postprocedural states Family History Family History Father Malignant neoplasm of prostate Sibling Family history of pancreatic disease Mother Family history of Alzheimer's disease Other Family history of cardiovascular disease Social History Social History Smoking status: Never smoker Second hand tobacco smoke exposure: No Alcohol intake: former Alcohol use details: sober 15 months Substance use: never Substance use type: does not use Lack of Transportation: No Lack of Food: Never True Current Housing: I Have Housing Concerned About Future Housing: No Difficulty Paying Gas/Electric Bills: No Difficulty Paying for Meds: No Currently Unemployed: No Education: Master's Degree or Higher Difficulty w/ Childcare or Family Care: No Living arrangements: alone Occupation/Education: occupation Additional occupation/education comments: [employer] Gender identity (if verbalized by the patient): Male Sexual Orientation (if Verbalized by the Patient): Straight or Heterosexual Spiritual care concerns: No Meds Home Medications and Allergies Home Medications ?Medication ?Instructions ?Recorded ?Confirmed ?Type atorvastatin 40 mg tablet 40 mg PO DAILY #90 tabs 04/04/20 12/08/24 Rx hydrochlorothiazide 25 mg tablet See Rx Instructions .Route 12/30/23 12/08/24 Rx .COMPLEX #36 tabs allopurinol 300 mg tablet 300 mg PO DAILY #90 tabs 05/10/24 12/08/24 Rx amlodipine 5 mg-benazepril 10 mg 1 cap PO BID #180 caps 09/25/24 12/08/24 Rx capsule rivaroxaban 20 mg tablet (Xarelto) 20 mg PO DAILY 09/25/24 12/08/24 History Allergies Allergy/AdvReac Type Severity Reaction Status Date / Time No Known Allergies Allergy Verified 12/08/24 07:00 Vital Signs Vital Signs - 24 hr 12/08/24 07:01 Temperature 97 F L Pulse Rate 87 Respiratory Rate 18 Blood Pressure 161/102 H Pulse Oximetry 98 Oxygen Delivery Room Air Exam Const: General: cooperative and healthy appearing Resp: Effort & Inspection: normal respiratory effort and able to speak in complete sentences Auscultation: clear to auscultation bilaterally Cardio: Rate: regular rate Rhythm: regular rhythm GI: Inspection: normal to inspection GI Palp: No No hepatosplenomegaly present Auscultation: normal bowel sounds Rectal Exam: deferred Skin: General skin exam: normal color Psych: Appearance: grossly normal Mental Status: mental status grossly normal Assessment and Plan Assessment and plan (1) Encounter for screening colonoscopy: Code(s): Z12.11 - Encounter for screening for malignant neoplasm of colon Status: Acute Assessment and Plan: The patient is deemed a good candidate for the procedure. Consent signed. Will proceed.
[2024-12-08 08:17] VITALS: BP 121/66; PULSE 89; RESP 30; O2SAT 96
[2024-12-08 08:27] VITALS: BP 122/72; PULSE 93; RESP 22; O2SAT 100
[2024-12-08 08:37] VITALS: BP 118/79; PULSE 85; RESP 23; O2SAT 100
== END 2024-12-08 08:49 | disposition home or self-care (01) ==
PROVIDERS: PCP Emergency Medicine; Referring Provider Emergency Medicine; Visit Provider Internal Medicine Gastroenterology
PROC: 0DJD8ZZ Inspection of Lower Intestinal Tract, Via Natural or Artificial Opening Endoscopic (ICD-10-PCS; CPT 45378; principal; 2024-12-08 08:00)
DX: Z12.11 Encounter for screening for malignant neoplasm of colon (principal); D12.5 Benign neoplasm of sigmoid colon; K64.8 Other hemorrhoids
CPT/HCPCS: 45385; 88305; J2704; J7120

== ENCOUNTER 2024-12-18 10:02 | Outpatient (CLI) | payer OTHER, SELFPAY ==
--- OUTSIDE RECORDS SUMMARY | 2024-12-18 11:07 | XMS_ITS | Encounter Summary ---
Author Organization [facility] Healthcare Address [address] [place] [address] Care Team Providers Care Technical Support Technician Name Role Phone AlbinoTimothy valdez Primary Care Provider [phone] Encounter Details Date Type Department Care Team (Late st Contact Info) Description 12/01/2024 Telephone [facility] Cardiology [address] [place] [address] Nahun Newby MD [address] [place] [address] Social History Tobacco Use Types Packs/Day Years Used Date Smoking Tobacco: Never Smokeless Tobacco: Never Alcohol Use Standard Drinks/Week Comments Yes 0 (1 standard drink = 0.6 oz pur e alcohol) Sex and Gender Information Value Date Recorded Sex Assigned at Not on file 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 Advised that MAF will be back in [place] office on Wednesday and will address clearances at that time * Telephone Encounter - Val Haynes - 12/01/2024 2:53 PM CDT Nancy from [facility] states she faxed a cardiac clearance request on 11/23 and again on to [phone]. Pt is scheduled on 12/08 and last dose is on 12/04. Requesting call back with an update. Contact: documented in this encounter Plan of Treatment Not on file documented as of this encounter Visit Diagnoses Not on filedocumented in this encounter Care Teams Technical Support Technician Relationship Specialty Start Date End Date Timothy Jacques DO PCP - General Family Medicine 05/25/22 documented as of this encounter
--- OUTSIDE RECORDS SUMMARY | 2024-12-18 11:07 | XMS_ITS | Encounter Summary ---
Author Organization [facility] Address [address] [place] [address] Care Team Providers Care Nuisance Wildlife Specialist Name Role Phone Benito Kang MD Primary Care Provider [phone] Benito Kang MD Primary Care Provider [phone] Timothy Jacques DO Primary Care Provider [phone] Encounter Details Date Type Department Care Team (Late st Contact Info) Description 11/10/2016 Orders Only [facility] ProviderAzul MD [address] [place] [address] Social History Tobacco Use Types Packs/Day Years Used Date Smoking Tobacco: Never Alcohol Use Standard Drinks/Week Comments Yes 0 (1 standard drink = 0.6 oz pur e alcohol) Sex and Gender Information Value Date Recorded Sex Assigned at Not on file 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
--- OUTSIDE RECORDS SUMMARY | 2024-12-18 11:07 | XMS_ITS | Clinical Summary ---
Author Organization [facility] Address [address] [place] [address] Care Team Providers Care Doctor Of Audiology Name Role Phone Unavailable Primary Care Provider [...] Vaccines (1 of 2) 1996 Pneumococcal Vaccine: 50+ Ye ars (1 of 1 - PCV) [...]
--- OUTSIDE RECORDS SUMMARY | 2024-12-18 11:07 | XMS_ITS | Encounter Summary ---
Author Organization [facility] Address [address] [place] [address] Care Team Providers Care Real Estate Paralegal Name Role Phone Benito Kang MD Primary Care Provider [phone] Benito Kang MD Primary Care Provider [phone] Timothy Jacques DO Primary Care Provider [phone] Encounter Details Date Type Department Care Team (Late st Contact Info) Description 09/11/2016 Orders Only [facility] ProviderAzul MD [address] [place] [address] Social History Tobacco Use Types Packs/Day Years Used Date Smoking Tobacco: Never Alcohol Use Standard Drinks/Week Comments Yes 0 (1 standard drink = 0.6 oz pur e alcohol) Sex and Gender Information Value Date Recorded Sex Assigned at Not on file 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
--- OUTSIDE RECORDS SUMMARY | 2024-12-18 11:07 | XMS_ITS | Referral Summary ---
Author Organization [facility] [address] Address [address] [place] [address] Care Team Providers Care Foam Rubber Molder Name Role Phone Timothy Jacques Primary Care Provider [phone] Encounters Date Type Department Care Team Description 12/04/2024 Telephone [facility] Cardiology [address] [place] [address] Nahun Newby MD 12/01/2024 Telephone [facility] Cardiology [address] [facility] [address] [place] [address] Nahun Newby MD from Last [...] 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 Atherosclerosis of [place] ronary artery without angina pectoris 03/14/2018 SHIRA (obstructive sleep apnea) 03/24/2017 Diastolic dysfunction 11/10/2016 Overview (01/29/2017): Diastolic dysfunction Persistent atrial fibrillation 09/11/2016 Overview (12/11/2016): Atrial fibrillation, unspecified type Fatigue 09/11/2016 Overview (12/11/2016): Fatigue, unspecified type 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
--- OUTSIDE RECORDS SUMMARY | 2024-12-18 11:07 | XMS_ITS | Encounter Summary ---
Author Organization [facility] Address [address] [facility] [address] [place] [address] Care Team Providers Care Tuyere Fitter Name Role Phone Benito Kang MD Primary Care Provider [phone] Benito Kang MD Primary Care Provider [phone] Timothy Jacques DO Primary Care Provider [phone] Encounter Details Date Type Department Care Team (Late st Contact Info) Description 09/16/2016 Orders Only [facility] ProviderAzul MD [address] [place] [address] Social History Tobacco Use Types Packs/Day Years Used Date Smoking Tobacco: Never Alcohol Use Standard Drinks/Week Comments Yes 0 (1 standard drink = 0.6 oz pur e alcohol) Sex and Gender Information Value Date Recorded Sex Assigned at Not on file 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
--- OUTSIDE RECORDS SUMMARY | 2024-12-18 11:07 | XMS_ITS | Clinical Summary ---
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 Atherosclerosis of [place] co ronary artery without angina pectoris 03/14/2018 SHIRA (obstructive sleep apnea) 03/24/2017 Diastolic dysfunction 11/10/2016 Overview (01/29/2017): Diastolic dysfunction Persistent atrial fibrillation 09/11/2016 Overview (12/11/2016): Atrial fibrillation, unspecified type Fatigue 09/11/2016 Overview (12/11/2016): Fatigue, unspecified type prison 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 use of 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 therapy 0 09/11/2016 Overview (12/11/2016): Chronic anticoagulation Hypertension 11/29/2014 Overview (12/11/2016): Hypertension Hyperlipidemia 11/29/2014 Overview (12/11/2016): Hyperlipidemia Atherosclerosis of coronary artery 11/29/2014 Overview (12/11/2016): CAD (coronary atherosclerotic disease) Encounters Date Type Department Care Team Description 12/04/2024 Telephone [facility] Cardiology [address] [place] [address] Nahun Newby MD 12/01/2024 Telephone [facility] Cardiology [address] [place] [address] Nahun Newby MD from Last 3 Months [...] on file 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
[2024-12-18 20:32] LABS: Alanine Aminotransferase 22 U/L (6-50); Albumin Level 4.5 g/dL (3.5-5.1); Alkaline Phosphatase 93 U/L (38-126); Anion Gap 8 mmol/L (4-12); Aspartate Amino Transferase 54 U/L (17-59); Bilirubin,Total 0.8 mg/dL (0.2-1.3); Blood Urea Nitrogen 20 mg/dL (9-20); Calcium 9.2 mg/dL (8.4-10.2); Carbon Dioxide 26 mmol/L (22-30); Chloride 104 mmol/L (98-107); Cholesterol 160 mg/dL (0-200); Estimated Glomerular Filt Rate > 60; Glucose 109 mg/dL (65-110); HDL Direct 64 mg/dL; Potassium 3.8 mmol/L (3.4-5.0); Sodium 138 mmol/L (137-145); Triglycerides 49 mg/dL (<150)
[2024-12-18 20:48] LABS: LDL Cholesterol Direct 75 mg/dL
[2024-12-18 20:57] LABS: Vitamin D 25 Hydroxy 33.6 ng/mL
[2024-12-18 22:14] LABS: Hemoglobin A1C 6.1 % (<5.7)
== END 2024-12-18 10:03 | disposition home or self-care (01) ==
LOC: ANHGOSHLAB 10:03
PROVIDERS: PCP Emergency Medicine; Visit Provider Emergency Medicine
DX: E78.5 Hyperlipidemia, unspecified (principal); E55.9 Vitamin D deficiency, unspecified; E11.9 Type 2 diabetes mellitus without complications
CPT/HCPCS: 36415; 80053; 80061; 82306; 83036

== ENCOUNTER 2025-01-04 15:32 | Outpatient (CLI) | payer OTHER, SELFPAY ==
--- NOTE | ~2025-01-04 | CT_ITS ---
CT of the Abdomen and Pelvis: Indication: Dysuria Technique: 2.5 mm axial scans were obtained through the abdomen and pelvis following intravenous adm inistration of 100 cc of Omnipaque 350. Dose reduction technique was used on this scan by utilizing a utomated exposure control and iterative reconstruction technique. The dose-length product (DLP) was 3 93.09 mGy-cm. Findings: Scans through the lung bases are unremarkable. Multiple hepatic and bilateral renal cysts are present. 3 mm nonobstructing left renal stone present. 1.5 cm hypodense splenic mass present. The pancreas, gallbladder, and adrenal glands are within norm al limits. There are atherosclerotic calcifications of the aorta. No lymphadenopathy. No bowel obstruction or bowel wall thickening. There is no evidence to suggest acute appendicitis. Images through the pelvis were performed. Urinary bladder distended. Prostate gland is enlarged with probable TURP defect. Small fat-containing left inguinal hernia present. No ascites. Impression: Distended bladder with enlarged prostate gland with probable TURP defect. 3 mm nonobstructing left renal stone. Small fat-containing left inguinal hernia. Multiple hepatic and bilateral renal cysts. Reviewed, dictated and finalized at [facility]. Impression: Distended bladder with enlarged prostate gland with probable TURP defect. 3 mm nonobstructing left renal stone. Small fat-containing left inguinal hernia. Multiple hepatic and bilateral renal cysts.
--- OUTSIDE RECORDS SUMMARY | 2025-01-04 15:38 | XMS_ITS | Encounter Summary ---
Author Organization [facility] Address [address] [facility] [address] [place] [address] Care Team Providers Care Channel Executive Name Role Phone Benito Kang MD Primary Care Provider [phone] Benito Kang MD Primary Care Provider [phone] Timothy Jacques DO Primary Care Provider [phone] Encounter Details Date Type Department Care Team (Late st Contact Info) Description 09/11/2016 Orders Only [facility] ProviderAzul MD [address] [place] [address] Social History Tobacco Use Types Packs/Day Years Used Date Smoking Tobacco: Never Alcohol Use Standard Drinks/Week Comments Yes 0 (1 standard drink = 0.6 oz pur e alcohol) Sex and Gender Information Value Date Recorded Sex Assigned at Not on file 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
--- OUTSIDE RECORDS SUMMARY | 2025-01-04 15:38 | XMS_ITS | Encounter Summary ---
Author Organization [facility] Address [address] [facility] [address] [place] [address] Care Team Providers Care Roll Carrier Name Role Phone Benito Kang MD Primary Care Provider [phone] Benito Kang MD Primary Care Provider [phone] Timothy Jacques DO Primary Care Provider [phone] Encounter Details Date Type Department Care Team (Late st Contact Info) Description 09/16/2016 Orders Only [facility] ProviderAzul MD [address] [place] [address] Social History Tobacco Use Types Packs/Day Years Used Date Smoking Tobacco: Never Alcohol Use Standard Drinks/Week Comments Yes 0 (1 standard drink = 0.6 oz pur e alcohol) Sex and Gender Information Value Date Recorded Sex Assigned at Not on file 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
--- OUTSIDE RECORDS SUMMARY | 2025-01-04 15:38 | XMS_ITS | Clinical Summary ---
Author Organization [facility] Address [address] [place] [address] Care Team Providers Care Coach Professional Athletes Name Role Phone Unavailable Primary Care Provider [...] Td Vaccines ( 1 - Tdap) 1965 Pneumococcal Vaccine: 50+ Ye ars (1 of 1 - PCV) 1996 Zoster Vaccines (1 of 2) 1996 RSV Immunization or 60+ Years (1 - [...]
--- OUTSIDE RECORDS SUMMARY | 2025-01-04 15:38 | XMS_ITS | Referral Summary ---
Author Organization [facility] [address] [facility] [address] Address [address] [place] [address] Care Team Providers Care Glue Mixer Name Role Phone Timothy Jacques Primary Care Provider [phone] Encounters Date Type Department Care Team Description 12/26/2024 11:30 AM CDT Office Visit [facility] Cardiology [address] [place] [address] Nahun Newby MD Atherosclerosis of [place] coronary artery without angina pectoris (Primary Dx); Persistent atrial fibrillation (HCC); Primary hypertension; correction current use of 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 therapy; SHIRA (obstructive sleep apnea) 12/04/2024 Telephone [facility] Cardiology [address] [place] [address] Nahun Newby MD 12/01/2024 Telephone [facility] Cardiology [address] [place] [address] Nahun Newby MD from Last 3 Months Allergies No known active allergies Medications hydroCHLOROthia [...] any more refills. 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 Atherosclerosis of [place] co ronary artery without angina pectoris 03/14/2018 SHIRA (obstructive sleep apnea) 03/24/2017 Diastolic dysfunction 11/10/2016 Overview (01/29/2017): Diastolic dysfunction Persistent atrial fibrillation 09/11/2016 Overview (12/11/2016): Atrial fibrillation, unspecified type Fatigue 09/11/2016 Overview (12/11/2016): 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, unspecified type 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 0 09/11/2016 [...] on file 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 Gender Identity Not on file Sexual Orientation Not on file Last Filed Vital Signs Vital Sign Reading Time Taken Comments Blood Pressure 138/85 12/26/2024 12:12 PM CDT Pulse 84 12/26/2024 11:32 AM CDT Temperature - - Respiratory Rate 14 03/24/2017 11:08 AM CDT Oxygen Saturation 97% 12/26/2024 11:32 AM CDT Inhaled Oxygen Concentration - - Weight 77.6 kg (171 lb) 12/26/2024 11:32 AM CDT Height 175.3 cm (5' 9 ) 12/26/2024 11:32 AM CDT Body Mass Index 25.25 12/26/2024 11:32 AM CDT Plan of Treatment Not on file Insurance [facility] Care Teams Glue Mixer Relationship Specialty Start Date End Date Timothy Jacques DO PCP - General Family Medicine 05/25/22
--- OUTSIDE RECORDS SUMMARY | 2025-01-04 15:38 | XMS_ITS | Encounter Summary ---
Author Organization [facility] Address [address] [facility] [address] [place] [address] Care Team Providers Care Drop Worker Name Role Phone Benito Kang MD Primary Care Provider [phone] Benito Kang MD Primary Care Provider [phone] Timothy Jacques DO Primary Care Provider [phone] Encounter Details Date Type Department Care Team (Late st Contact Info) Description 11/10/2016 Orders Only [facility] ProviderAzul MD [address] [place] [address] Social History Tobacco Use Types Packs/Day Years Used Date Smoking Tobacco: Never Alcohol Use Standard Drinks/Week Comments Yes 0 (1 standard drink = 0.6 oz pur e alcohol) Sex and Gender Information Value Date Recorded Sex Assigned at Not on file 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
--- OUTSIDE RECORDS SUMMARY | 2025-01-04 15:38 | XMS_ITS | Clinical Summary ---
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 Atherosclerosis of [place] co ronary artery without angina pectoris 03/14/2018 SHRIA (obstructive sleep apnea) 03/24/2017 Diastolic dysfunction 11/10/2016 Overview (01/29/2017): Diastolic dysfunction Persistent atrial fibrillation 09/11/2016 Overview (12/11/2016): Atrial fibrillation, unspecified type Fatigue 09/11/2016 Overview (12/11/2016): Fatigue, unspecified type alf current use of 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 therapy 0 09/11/2016 Overview (12/11/2016): Chronic anticoagulation Hypertension 11/29/2014 Overview (12/11/2016): Hypertension Hyperlipidemia 11/29/2014 Overview (12/11/2016): Hyperlipidemia Atherosclerosis of coronary artery 11/29/2014 Overview (12/11/2016): CAD (coronary atherosclerotic disease) Encounters Date Type Department Care Team Description 12/26/2024 11:30 AM CDT Office Visit [facility] Cardiology [address] [place] [address] Nahun Newby MD Atherosclerosis of [place] coronary artery without angina pectoris (Primary Dx); Persistent atrial fibrillation (HCC); Primary hypertension; alf current use of 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 therapy; SHIRA (obstructive sleep apnea) 12/04/2024 Telephone [facility] Cardiology [address] [place] [address] Nahun Newby MD 12/01/2024 Telephone [facility] Cardiology [address] [place] [address] Nahun Newby MD from Last 3 Months [...] on file 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 Gender Identity Not on file Sexual Orientation [...] 12/26/2024 11:32 AM CDT Plan of Treatment Health Maintenance Due Date Last Done Comments Depression Screening 1945 Fall Risk Assessment 1945 Hepatitis C Screening 1945 DTaP/Tdap/Td Vaccine (1 - Tdap) 1957 Hepatitis B Screening 1964 Zoster Vaccine (1 of 2) 1996 Well Visit 65+ 2011 Influenza Vaccine (Season Ended) 2025 06/06/2020, 05/24/2020, 07/05/2018, Additional history exists Pneumococcal vaccine 65+ Completed 020, 07/05/2018, 11/04/2015 Insurance [facility] Care Teams Consulting Psychologist Relationship Specialty Start Date End Date Timothy Jacques DO PCP - General Family Medicine 05/25/22
[2025-01-04 16:10] LABS: Add Urine Microscopic? NO; Appearance Urine Clear (Clear); Bilirubin Urine Negative (Negative); Blood Urine Negative (Negative); Color Urine Yellow (Yellow); Glucose Urine UA Negative (Negative); Ketones Urine Negative (Negative); Leukocyte Esterase Ur Negative LEU/UL (Negative); Nitrate Urine Negative (Negative); Protein Urine Negative (Negative); Specific Grav Ur 1.007 (1.001-1.035); Urobilinogen Urine 0.2 mg/dL (<2.0)
== END 2025-01-04 15:33 | disposition home or self-care (01) ==
PROVIDERS: PCP Emergency Medicine; Visit Provider Emergency Medicine
DX: N39.0 Urinary tract infection, site not specified (principal); R30.0 Dysuria; K40.90 Unilateral inguinal hernia, without obstruction or gangrene, not specified as recurrent; N20.0 Calculus of kidney; N28.1 Cyst of kidney, acquired
CPT/HCPCS: 74177; 81003; Q9967

== ENCOUNTER 2025-04-16 08:59 | Outpatient (CLI) | payer OTHER, SELFPAY ==
--- OUTSIDE RECORDS SUMMARY | 2025-04-16 09:05 | XMS_ITS | Encounter Summary ---
Author Organization [facility] Address [address] [facility] [address] [place] [address] Care Team Providers Care Histology Teacher Name Role Phone Benito Kang MD Primary Care Provider [phone] Benito Kang MD Primary Care Provider [phone] Timothy Jacques DO Primary Care Provider [phone] Encounter Details Date Type Department Care Team (Late st Contact Info) Description 09/16/2016 Orders Only [facility] ProviderAzul MD [address] [place] [address] Social History Tobacco Use Types Packs/Day Years Used Date Smoking Tobacco: Never Alcohol Use Standard Drinks/Week Comments Yes 0 (1 standard drink = 0.6 oz pur e alcohol) Sex and Gender Information Value Date Recorded Sex Assigned at Not on file 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
--- OUTSIDE RECORDS SUMMARY | 2025-04-16 09:05 | XMS_ITS | Encounter Summary ---
Author Organization [facility] Address [address] [facility] [address] [place] [address] Care Team Providers Care Network Communications Engineer Name Role Phone Benito Kang MD Primary Care Provider [phone] Benito Kang MD Primary Care Provider [phone] Timothy Jacques DO Primary Care Provider [phone] Encounter Details Date Type Department Care Team (Late st Contact Info) Description 11/10/2016 Orders Only [facility] ProviderAuzl MD [address] [place] [address] Social History Tobacco Use Types Packs/Day Years Used Date Smoking Tobacco: Never Alcohol Use Standard Drinks/Week Comments Yes 0 (1 standard drink = 0.6 oz pur e alcohol) Sex and Gender Information Value Date Recorded Sex Assigned at Not on file 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
--- OUTSIDE RECORDS SUMMARY | 2025-04-16 09:05 | XMS_ITS | Clinical Summary ---
Author Organization [facility] Address [address] [place] [address] Care Team Providers Care Talking Books Library Clerk Name Role Phone Unavailable Primary Care Provider [...]
--- OUTSIDE RECORDS SUMMARY | 2025-04-16 09:05 | XMS_ITS | Clinical Summary ---
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 Atherosclerosis of [place] co ronary artery without angina pectoris 03/14/2018 SHIRA (obstructive sleep apnea) 03/24/2017 Diastolic dysfunction 11/10/2016 Overview (01/29/2017): Diastolic dysfunction Persistent atrial fibrillation 09/11/2016 Overview (12/11/2016): Atrial fibrillation, unspecified type Fatigue 09/11/2016 Overview (12/11/2016): 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, unspecified type 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 0 09/11/2016 [...] on file 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 Gender Identity Not on file Sexual Orientation [...] 11:32 AM CDT Height 175.3 cm (5' 9) 12/26/2024 11:32 AM CDT Body Mass Index 25.25 12/26/2024 11:32 AM CDT Plan of Treatment Health Maintenance Due Date Last Done Comments Depression Screening 1945 Fall Risk Assessment 1945 Hepatitis C Screening 1946 DTaP/Tdap/Td Vaccine (1 - Tdap) 1957 Hepatitis B Screening 1964 Zoster Vaccine (1 of 2) 1996 Well Visit 65+ 2011 Influenza Vaccine (#1) 2025 0, 05/24/2020, 07/05/2018, Additional history exists Pneumococcal vaccine 65+ Completed 020, 07/05/2018, 11/04/2015 Insurance [facility] Care Teams Test Conductor Relationship Specialty Start Date End Date Timothy Jacques DO PCP - General Family Medicine 05/25/22
--- OUTSIDE RECORDS SUMMARY | 2025-04-16 09:05 | XMS_ITS | Encounter Summary ---
Author Organization [facility] Address [address] [facility] [address] [place] [address] Care Team Providers Care Aircraft Air Conditioning Mechanic Name Role Phone Benito Kang MD Primary Care Provider [phone] Benito Kang MD Primary Care Provider [phone] Timothy Jacques DO Primary Care Provider [phone] Encounter Details Date Type Department Care Team (Late st Contact Info) Description 09/11/2016 Orders Only [facility] ProviderAzul MD [address] [place] [address] Social History Tobacco Use Types Packs/Day Years Used Date Smoking Tobacco: Never Alcohol Use Standard Drinks/Week Comments Yes 0 (1 standard drink = 0.6 oz pur e alcohol) Sex and Gender Information Value Date Recorded Sex Assigned at Not on file 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
[2025-04-16 13:00] LABS: Hematocrit 46.4 % (42.0-52.0); Hemoglobin 14.6 g/dL (14.0-18.0); Immature Granulocyte Percent A 0.3 % (0-0.5); Lymphocytes Absolute Auto 3.07 K/mm3 (0.9-3.2); Mean Corpuscular HGB Conc 31.5 g/dl (32-36); Mean Corpuscular Hemoglobin 26.7 pg (26-34); Mean Corpuscular Volume 85.0 fl (80-100); Nucleated Red Blood Cells Absolute Auto 0.000 K/mm3 (0.0-0.012); Nucleated Red Blood Cells Perc 0.0 % (0.0-0.2); Platelet Count Result 223 k/mm3 (150-375); Red Blood Count 5.46 M/mm3 (4.6-6.20); White Blood Count 9.6 K/mm3 (4.5-10.0)
[2025-04-16 13:10] LABS: Alanine Aminotransferase 22 U/L (6-50); Albumin Level 4.4 g/dL (3.5-5.1); Alkaline Phosphatase 82 U/L (38-126); Anion Gap 8 mmol/L (4-12); Aspartate Amino Transferase 58 U/L (17-59); Bilirubin,Total 0.6 mg/dL (0.2-1.3); Blood Urea Nitrogen 27 mg/dL (9-20); Calcium 9.6 mg/dL (8.4-10.2); Carbon Dioxide 27 mmol/L (22-30); Chloride 106 mmol/L (98-107); Cholesterol 156 mg/dL (0-200); Estimated Glomerular Filt Rate > 60; Glucose 112 mg/dL (65-110); HDL Direct 64 mg/dL; Potassium 4.2 mmol/L (3.4-5.0); Sodium 141 mmol/L (137-145); Total Protein 7.4 g/dL (6.3-8.2); Triglycerides 48 mg/dL (<150)
[2025-04-16 14:32] LABS: Hemoglobin A1C 6.1 % (<5.7)
[2025-04-16 17:01] LABS: MALB Creatinine Ratio 8.3 mg/g (0-30)
== END 2025-04-16 09:00 | disposition home or self-care (01) ==
LOC: ANHGOSHLAB 09:00
PROVIDERS: PCP Emergency Medicine; Visit Provider Emergency Medicine
DX: E78.5 Hyperlipidemia, unspecified (principal); I10 Essential (primary) hypertension; E11.9 Type 2 diabetes mellitus without complications; E55.9 Vitamin D deficiency, unspecified
CPT/HCPCS: 36415; 80053; 80061; 82043; 82306; 83036; 85025

== ENCOUNTER 2025-08-20 09:06 | Outpatient (CLI) | payer OTHER, SELFPAY ==
[2025-08-20 11:23] LABS: Alanine Aminotransferase 29 U/L (6-50); Albumin Level 4.7 g/dL (3.5-5.1); Alkaline Phosphatase 96 U/L (38-126); Anion Gap 5 mmol/L (4-12); Aspartate Amino Transferase 66 U/L (17-59); Bilirubin,Total 1.0 mg/dL (0.2-1.3); Blood Urea Nitrogen 20 mg/dL (9-20); Calcium 9.8 mg/dL (8.4-10.2); Carbon Dioxide 28 mmol/L (22-30); Chloride 107 mmol/L (98-107); Cholesterol 146 mg/dL (0-200); Estimated Glomerular Filt Rate > 60; Glucose 117 mg/dL (65-110); HDL Direct 68 mg/dL; Potassium 4.4 mmol/L (3.4-5.0); Sodium 140 mmol/L (137-145); Total Protein 7.9 g/dL (6.3-8.2); Triglycerides 40 mg/dL (<150)
[2025-08-20 11:59] LABS: Hemoglobin A1C 6.0 % (<5.7)
== END 2025-08-20 09:07 | disposition home or self-care (01) ==
LOC: ANHGOSHLAB 09:07
PROVIDERS: PCP Emergency Medicine; Visit Provider Emergency Medicine
DX: E78.5 Hyperlipidemia, unspecified (principal); E55.9 Vitamin D deficiency, unspecified; E11.9 Type 2 diabetes mellitus without complications
CPT/HCPCS: 36415; 80053; 80061; 82306; 83036